=== PATIENT | female | born 1950 | race Caucasian/White ===

== ENCOUNTER 2018-09-06 07:38 | Inpatient (IN) | payer MEDICARE ==
[2018-09-03 09:00] VITALS: BMI 29.9
[2018-09-06 09:48] LABS: Anion Gap 15 mmol/L (10-20); BUN (Urea Nitrogen) 17 mg/dL (9.8-20.1); Calc. Creatinine Clearance 87 mL/min (70-130); Calcium 9.9 mg/dL (7.8-10.44); Carbon Dioxide 26 mmol/L (23-31); Chloride 102 mmol/L (98-107); Estimated GFR-MDRD 72; Glucose 129 mg/dL (80-115); Potassium 3.8 mmol/L (3.5-5.1); Sodium 139 mmol/L (136-145)
[2018-09-06] MEDS ORDERED: Fentanyl 100 MCG/2 ML VIAL ONE ×4 (09:54→12:43)
[2018-09-06] MEDS ORDERED: Sodium Chloride 0.9% 10 ML ONE (10:46)
[2018-09-06 10:55] LABS: Hemoglobin 11.4 g/dL (12.0-16.0); Mean Corpuscular Hemoglobin 22.3 pg (27.0-31.0); Platelet Count 247 thou/uL (130-400); RBC Distribution Width 16.5 % (11.5-14.5); White Blood Cell (WBC) Count 7.1 thou/uL (4.8-10.8)
[2018-09-06] MEDS ORDERED: HYDROmorphone 2 MG/ML VIAL ONE ×2 (12:23→13:02)
[2018-09-06] MEDS ORDERED: HYDROmorphone 2 MG/ML VIAL SLOW IVP PRN (12:29)
[2018-09-06] MEDS ORDERED: Ondansetron HCl/PF 4 MG/2 ML Vial IVP PRN (12:29)
[2018-09-06] MEDS ORDERED: Meperidine HCl/PF 25 MG/ML VIAL SLOW IVP PRN (12:29)
[2018-09-06] MEDS ORDERED: PACU-Morphine 4MG/ML VIAL SLOW IVP PRN (12:29)
[2018-09-06] MEDS ORDERED: Morphine Sulfate 2 MG/ML SYRINGE SLOW IVP PRN (12:29)
--- NOTE | 2018-09-06 13:23 | OP ---
DATE OF PROCEDURE: 09/06/2018 BRAKE REPAIRER: Enmanuel Shelton PA-C PROCEDURE PERFORMED: L4-L5 laminectomy; posterolateral arthrodesis; pedicle screw instrumentation, L4-L5; demineralized bone matrix; local morselized autograft. DESCRIPTION OF PROCEDURE: The patient was brought to the operating room and intubated. The patient was rolled in the prone position on gel-filled chest rolls. An incision was made exposing L4 and L5 and the level was confirmed by x-ray. We performed complete L5 with inferior L4 laminectomies completely decompressing the neural elements. There did appear to be scar tissue here consistent with prior surgery as well as significant synovial debris. After complete decompression was secured, pedicle screws were placed at right L4 and right L5 using lateral fluoroscopic guidance. These were connected by rods and secured by nuts, which were final tightened. The wound was then extensively irrigated and MAC hemostasis was secured. A combination of demineralized bone matrix and local morselized autograft was laid over the left lamina and posterolateral surfaces of posterolateral arthrodesis. Vancomycin powder was applied and the wound was then closed in anatomic layers over a drain. Job ID: [id number]
[2018-09-06] MEDS ORDERED: Milk Of Magnesia 30 ML UDCUP PO PRN (15:04)
[2018-09-06] MEDS ORDERED: Promethazine HCl 25 MG/ML VIAL IM PRN (15:04)
[2018-09-06] MEDS ORDERED: diphenhydrAMINE 50 MG/ML VIAL IVP PRN (15:04)
[2018-09-06] MEDS ORDERED: Mag-Al 1200 mg/1200 mg/30 ML UDCUP PO PRN (15:04)
[2018-09-06] MEDS ORDERED: traMADol HCl 50 MG TAB PO PRN ×2 (15:04)
[2018-09-06] MEDS ORDERED: diphenhydrAMINE 25 MG CAP PO PRN (15:04)
[2018-09-06] MEDS ORDERED: tiZANidine HCl 4 MG TAB PO PRN (15:04)
[2018-09-06] MEDS ORDERED: Promethazine 25 MG TAB PO PRN (15:04)
[2018-09-06] MEDS ORDERED: Promethazine HCl 12.5 MG SUPP PR PRN (15:04)
[2018-09-06] MEDS ORDERED: Ondansetron PF 4 MG/2 ML Vial IM PRN (15:04)
--- NOTE | 2018-09-06 15:04 | PDOC.PN ---
- Subjective Encounter Start Date: 09/06/18 Encounter Start Time: 15:25 -: old records requested/rev Patient seen and examined. No new complaints. - Objective MAR Reviewed: Yes Vital Signs & Weight: Weight Weight 180 lb Result Diagrams: 09/06/18 09:22 09/06/18 09:22 Additional Labs: OLD LABS AND MEDICAL RECORD REVIEWED Phys Exam - Physical Examination Constitutional: NAD HEENT: moist MMs, sclera anicteric Neck: no JVD, supple Respiratory: no wheezing, no rales, no rhonchi Cardiovascular: RRR, no significant murmur, no rub Gastrointestinal: soft, non-tender, no distention, positive bowel sounds Musculoskeletal: no edema, pulses present Neurological: non-focal, normal sensation Psychiatric: normal affect, A&O x 3 Skin: no rash, normal turgor Dx/Plan (1) S/P lumbar laminectomy Code(s): Z98.890 - OTHER SPECIFIED POSTPROCEDURAL STATES Status: Acute (2) Diabetes type 2, controlled Code(s): E11.9 - TYPE 2 DIABETES MELLITUS WITHOUT COMPLICATIONS Status: Chronic (3) Hypertension Code(s): I10 - ESSENTIAL (PRIMARY) HYPERTENSION Status: Chronic (4) Obesity (BMI 30.0-34.9) Code(s): E66.9 - OBESITY, UNSPECIFIED Status: Chronic (5) Dyslipidemia Code(s): E78.5 - HYPERLIPIDEMIA, UNSPECIFIED Status: Chronic (6) GERD (gastroesophageal reflux disease) Code(s): K21.9 - GASTRO-ESOPHAGEAL REFLUX DISEASE WITHOUT ESOPHAGITIS Status: Chronic - Plan cont current plan of care, PT/OT, DVT proph w/SCDs * Home medication reconciled * medication reviewed as below * symptomatic treatment * pain control * PT/OT * diabetes hyperglycemia protocol * code status-full code Review of Systems - Review of Systems ENT: negative: Ear Pain, Ear Discharge, Nose Pain, Nose Discharge, Nose Congestion, Mouth Pain, Mouth Swelling, Throat Pain, Throat Swelling, Other Respiratory: negative: Cough, Dry, Shortness of Breath, Hemoptysis, SOB with Excertion, Pleuritic Pain, Sputum, Wheezing Cardiovascular: negative: chest pain, palpitations, orthopnea, paroxysmal nocturnal dyspnea, edema, light headedness, other Gastrointestinal: negative: Nausea, Vomiting, Abdominal Pain, Diarrhea, Constipation, Melena, Hematochezia, Other Genitourinary: negative: Dysuria, Frequency, Incontinence, Hematuria, Retention , Other Musculoskeletal: negative: Neck Pain, Shoulder Pain, Arm Pain, Back Pain, Hand Pain, Leg Pain, Foot Pain, Other - Medications/Allergies Allergies/Adverse Reactions: Allergies Allergy/AdvReac Type Severity Reaction Status Date / Time levofloxacin [From Levaquin] Allergy Verified 09/03/18 08:59 prochlorperazine Allergy Verified 09/03/18 08:59 [From Compazine] Medications: Current Medications Acetaminophen (Tylenol) 650 mg PO Q6H PRN PRN Reason: Mild Pain (1-3) Hydrocodone Bitart/Acetaminophen ([place] 10/325) 1 tab PO Q4H PRN PRN Reason: PAIN (1-3) Hydrocodone Bitart/Acetaminophen ([place] 10/325) 2 tab PO Q4H PRN PRN Reason: PAIN (4-6) Al Hydroxide/Mg Hydroxide (Maalox) 30 ml PO Q4H PRN PRN Reason: Heartburn or Indigestion Amlodipine Besylate (Norvasc) 5 mg PO DAILY [facility] Artificial Tears (Tears Naturale) 2 drop EA EYE PRN PRN PRN Reason: Dry Eyes Bisacodyl (Dulcolax) 10 mg PO DAILYPRN PRN PRN Reason: Constipation Calcium Carbonate (Tums) 1,000 mg PO Q4H PRN PRN Reason: Heartburn or Indigestion Dextrose/Water (Dextrose 50%) 25 gm SLOW IVP PRN PRN PRN Reason: Hypoglycemia Diphenhydramine HCl (Benadryl) 25 mg PO Q6H PRN PRN Reason: Itching Diphenhydramine HCl (Benadryl) 25 mg IVP Q6H PRN PRN Reason: Itching Famotidine (Pepcid) 20 mg PO BID [facility] Fentanyl (Pacu-Sublimaze) 50 mcg SLOW IVP Q10MIN PRN PRN Reason: Moderate to Severe Pain (6-10) Stop: 09/06/18 15:29 Glucagon (Glucagon) 1 mg IM PRN PRN PRN Reason: Hypoglycemia Guaifenesin (Robitussin Sf) 200 mg PO Q4H PRN PRN Reason: Cough Hydralazine HCl (Apresoline) 10 mg SLOW IVP Q4H PRN PRN Reason: SBP > 180 and HR < 70 Hydrochlorothiazide (Hydrochlorothiazide) mg PO DAILY [facility] Hydromorphone HCl (Pacu-Dilaudid) 0.5 mg SLOW IVP Q10MIN PRN PRN Reason: Moderate to Severe Pain (6-10) Stop: 09/06/18 15:29 Cefazolin Sodium/Dextrose 2 gm (/ Device) 50 mls @ 100 mls/hr IVPB Q8HR [facility] Dextrose/Water (D5w) 1,000 mls @ 0 mls/hr IV .Q0M PRN PRN Reason: Hypoglycemia Insulin Human Lispro (Humalog) 0 units SC .MODERATE SLIDING SC PRN PRN Reason: Moderate Correctional Scale Insulin Human Lispro (Humalog) 0 units SC .BEDTIME SLIDING SC PRN PRN Reason: Bedtime Correctional Scale Loperamide HCl (Imodium) 2 mg PO PRN PRN PRN Reason: Diarrhea/Loose Stools Loratadine (Claritin) 10 mg PO DAILYPRN PRN PRN Reason: Sinus Symptoms Losartan Potassium (Cozaar) 25 mg PO DAILY [facility] Magnesium Hydroxide (Milk Of Magnesium) 30 ml PO Q12H PRN PRN Reason: Constipation Meperidine HCl (Pacu-Demerol) 12.5 mg SLOW IVP ONE PRN PRN Reason: Shivering Stop: 09/06/18 15:29 Metoprolol Succinate (Toprol Xl) mg PO DAILY [facility] Morphine Sulfate (Pacu-Morphine) 4 mg SLOW IVP ONE PRN PRN Reason: Moderate to Severe Pain (6-10) Stop: 09/06/18 15:29 Morphine Sulfate (Pacu-Morphine Sulfate) 2 mg SLOW IVP Q10MIN PRN PRN Reason: Moderate to Severe Pain (6-10) Stop: 09/06/18 15:29 Morphine Sulfate (Morphine) 2 mg SLOW IVP Q1H PRN PRN Reason: Moderate Breakthrough Pain Morphine Sulfate (Morphine) 4 mg SLOW IVP Q1H PRN PRN Reason: SEVERE BREAKTHROUGH PAIN Non-Formulary Medication (Insulin Glargine,Hum.Rec.Anlog [Lantus Solostar]) 32 units SC BID [facility] Non-Formulary Medication (Liraglutide [Victoza 3-Efren]) 1.2 ml SC DAILY [facility] Non-Formulary Medication (Metformin Hcl [Metformin Hcl]) 1 tab PO BID [facility] Non-Formulary Medication (Omeprazole [Omeprazole]) 4 tab PO DAILY [facility] Non-Formulary Medication (Oxycodone Hcl/Acetaminophen [Percocet]) 1 tablet PO Q12H PRN PRN Reason: Pain Ondansetron HCl (Pacu-Zofran) 4 mg IVP ONE PRN PRN Reason: Nausea/Vomiting Stop: 09/06/18 15:29 Ondansetron HCl (Zofran) 4 mg IM Q24H PRN PRN Reason: Nausea/Vomiting Ondansetron HCl (Zofran Odt) 4 mg PO Q6H PRN PRN Reason: Nausea/Vomiting Ondansetron HCl (Zofran) 4 mg IVP Q6H PRN PRN Reason: Nausea/Vomiting Pregabalin (Lyrica) mg PO TID [facility] Promethazine HCl (Phenergan) 12.5 mg IM Q4H PRN PRN Reason: Nausea/Vomiting Promethazine HCl (Phenergan) 12.5 mg PO Q4H PRN PRN Reason: Nausea/Vomiting Promethazine HCl (Phenergan Suppository) 12.5 mg [place] Q4H PRN PRN Reason: Nausea/Vomiting Senna/Docusate Sodium (Senokot S) 2 tab PO BID PRN PRN Reason: Constipation Sodium Chloride (Flush - Normal Saline) 10 ml IVF PRN PRN PRN Reason: Saline Flush Sodium Chloride ([place] Nasal [place] 0.65%) 0 ml EA NARE QIDPRN PRN PRN Reason: Nasal Congestion Temazepam (Restoril) 15 mg PO HSPRN PRN PRN Reason: Insomnia Throat Lozenges (Cepastat Lozenges) 1 colton PO Q2H PRN PRN Reason: Sore Throat Tizanidine HCl (Zanaflex) 4 mg PO Q6H PRN PRN Reason: MUSCLE SPASM Tramadol HCl (Ultram) 50 mg PO Q6H PRN PRN Reason: PAIN (1-3) Tramadol HCl (Ultram) 100 mg PO Q6H PRN PRN Reason: PAIN (4-6)
[2018-09-06] MEDS ORDERED: Dextrose 5% in Water 1,000 ML IV PRN (15:06)
[2018-09-06] MEDS ORDERED: Dextrose 50% Abboject 50 ML SYRINGE SLOW IVP PRN (15:06)
[2018-09-06] MEDS ORDERED: Cepastat Lozenges 1 LOZ PO PRN (15:07)
[2018-09-06] MEDS ORDERED: Senokot S 8.6-50 MG TAB PO PRN (15:07)
[2018-09-06] MEDS ORDERED: Ondansetron ODT 4 MG TAB PO PRN (15:07)
[2018-09-06] MEDS ORDERED: Calcium Carbonate 500 MG ChewTAB PO PRN (15:07)
[2018-09-06] MEDS ORDERED: Sodium Chloride 0.65% Nasal 44 ML BOT EA NARE PRN (15:07)
[2018-09-06] MEDS ORDERED: hydrALAZINE 20 MG/ML VIAL SLOW IVP PRN (15:07)
[2018-09-06] MEDS ORDERED: Diabetic Tussin 200 MG/10 ML UDCUP PO PRN (15:07)
[2018-09-06] MEDS ORDERED: Loratadine 10 MG TAB PO PRN (15:07)
[2018-09-06] MEDS ORDERED: Artificial Tears 18 DROP/0.9 ML EA EYE PRN (15:07)
[2018-09-06] MEDS ORDERED: Loperamide HCl 2 MG CAP PO PRN (15:07)
[2018-09-06] MEDS ORDERED: Temazepam 15 MG CAP PO PRN (15:07)
[2018-09-06] MEDS ORDERED: Bisacodyl 5 MG TAB PO PRN (15:07)
[2018-09-06] MEDS ORDERED: Ondansetron PF 4 MG/2 ML Vial IVP PRN (15:07)
[2018-09-06] MEDS ORDERED: Rocuronium Bromide 10 MG/ML (10ML VIAL) ONE (16:07)
[2018-09-06] MEDS ORDERED: Glycopyrrolate 0.2 MG/ML 5 ML SYRINGE ONE (16:07)
[2018-09-06] MEDS ORDERED: Ondansetron PF 4 MG/2 ML Vial ONE (16:07)
[2018-09-06] MEDS ORDERED: Lidocaine 1% PF 5 ML VIAL ONE (16:07)
[2018-09-06] MEDS ORDERED: Ketorolac Tromethamine 30 MG/ML VIAL ONE (16:07)
[2018-09-06] MEDS ORDERED: Dexamethasone 20 MG/5 ML VIAL ONE (16:07)
[2018-09-06] MEDS ORDERED: PHENYLEPHRINE-NS 100 MCG/ML 10 ML SYRINGE ONE (16:07)
[2018-09-06] MEDS ORDERED: PROPOFOL 200 MG/20 ML VIAL ONE (16:07)
[2018-09-06] MEDS: Morphine 4 MG/ML VIAL SLOW IVP PRN (16:28)
[2018-09-06] MEDS ORDERED: Acetaminophen 325 MG TAB PO PRN (16:31)
[2018-09-06] MEDS: HumaLOG 300 UNITS/3 ML VIAL SC PRN ×2 (18:08→21:00)
[2018-09-06] MEDS: Sodium Chloride 0.9% 1,000 ML IV SCH (19:26)
[2018-09-06] MEDS ORDERED: Sodium Chloride 0.9% 1,000 ML IV SCH (20:00)
[2018-09-06] MEDS ORDERED: Ketorolac Tromethamine 30 MG/ML VIAL IVP SCH (20:15)
[2018-09-06] MEDS: Famotidine 20 MG TAB PO SCH ×2 (20:49→21:25)
[2018-09-06] MEDS: Pregabalin 75 MG CAP PO SCH (20:49)
[2018-09-06] MEDS: Insulin Glargine 32 UNITS in Pre-Filled Syringe 1 EACH SC SCH (21:00)
[2018-09-06] MEDS: CEFAZOLIN 2 GM in Premix Bag 1 BAG IVPB SCH (21:03)
[2018-09-07] MEDS: CEFAZOLIN 2 GM in Premix Bag 1 BAG IVPB SCH ×3 (05:20→21:06)
[2018-09-07] MEDS: HumaLOG 300 UNITS/3 ML VIAL SC PRN ×3 (06:04→17:36)
[2018-09-07] MEDS: Amlodipine 5 MG TAB PO SCH (08:22)
[2018-09-07] MEDS: metFORMIN 500 MG TAB PO SCH ×2 (08:22→17:36)
[2018-09-07] MEDS: Famotidine 20 MG TAB PO SCH ×2 (08:22→21:00)
[2018-09-07] MEDS: Insulin Glargine 32 UNITS in Pre-Filled Syringe 1 EACH SC SCH ×2 (08:23→21:00)
[2018-09-07] MEDS: Pregabalin 75 MG CAP PO SCH ×3 (08:23→21:03)
[2018-09-07] MEDS: HYDROcodone/Acetaminophen 10/325 mg Tablet PO PRN ×2 (08:37→23:09)
[2018-09-07] MEDS ORDERED: LIRAGLUTIDE SC SCH (09:00)
--- NOTE | 2018-09-07 10:45 | PDOC.PN ---
- Subjective Encounter Start Date: 09/07/18 Encounter Start Time: 08:20 Patient seen and examined. No new complaints. No overnight events, drain removed today - Objective Resuscitation Status - Order Detail: 09/06/18 15:06 Resuscitation Status Routine Resuscitation Status: FULL: Full Resuscitation MAR Reviewed: Yes Vital Signs & Weight: Vital Signs (12 hours) Temp Pulse Resp BP Pulse Ox 09/07/18 08:00 98.3 F 77 16 140/58 L 94 L 09/07/18 04:21 98.2 F 81 16 109/58 L 94 L 09/06/18 23:45 98.2 F 85 16 109/58 L 94 L Weight Weight 180 lb I&O: 09/06/18 09/07/18 09/08/18 06:59 06:59 06:59 Intake Total 2150 Output Total 260 Balance 1890 Result Diagrams: 09/06/18 09:22 09/06/18 09:22 Additional Labs: Accuchecks 09/07/18 09/06/18 09/06/18 05:36 20:50 17:03 POC Glucose 245 H 365 H 215 H Phys Exam - Physical Examination Constitutional: NAD HEENT: PERRLA, moist MMs, sclera anicteric Neck: no JVD, supple Respiratory: no wheezing, no rales, no rhonchi Cardiovascular: RRR, no significant murmur, no rub Gastrointestinal: soft, non-tender, no distention, positive bowel sounds Musculoskeletal: no edema, pulses present Neurological: non-focal, normal sensation, moves all 4 limbs Lymphatic: no nodes Psychiatric: normal affect, A&O x 3 Skin: no rash, normal turgor Dx/Plan (1) S/P lumbar laminectomy Code(s): Z98.890 - OTHER SPECIFIED POSTPROCEDURAL STATES Status: Acute (2) Diabetes type 2, controlled Code(s): E11.9 - TYPE 2 DIABETES MELLITUS WITHOUT COMPLICATIONS Status: Chronic (3) Hypertension Code(s): I10 - ESSENTIAL (PRIMARY) HYPERTENSION Status: Chronic (4) Obesity (BMI 30.0-34.9) Code(s): E66.9 - OBESITY, UNSPECIFIED Status: Chronic (5) Dyslipidemia Code(s): E78.5 - HYPERLIPIDEMIA, UNSPECIFIED Status: Chronic (6) GERD (gastroesophageal reflux disease) Code(s): K21.9 - GASTRO-ESOPHAGEAL REFLUX DISEASE WITHOUT ESOPHAGITIS Status: Chronic - Plan cont current plan of care, PT/OT * pain controlled * medically stable * continue PT as per protocol * medication reviewed as below * symptomatic treatment. * discharge as per primary team * resume her home medication on discharge Review of Systems - Review of Systems Eyes: negative: Pain, Vision Change, Conjunctivae Inflammation, Eyelid Inflammation, Redness, Other ENT: negative: Ear Pain, Ear Discharge, Nose Pain, Nose Discharge, Nose Congestion, Mouth Pain, Mouth Swelling, Throat Pain, Throat Swelling, Other Respiratory: negative: Cough, Dry, Shortness of Breath, Hemoptysis, SOB with Excertion, Pleuritic Pain, Sputum, Wheezing Cardiovascular: negative: chest pain, palpitations, orthopnea, paroxysmal nocturnal dyspnea, edema, light headedness, other Gastrointestinal: negative: Nausea, Vomiting, Abdominal Pain, Diarrhea, Constipation, Melena, Hematochezia, Other Genitourinary: negative: Dysuria, Frequency, Incontinence, Hematuria, Retention , Other Musculoskeletal: Back Pain Skin: negative: Rash, Lesions, Presley, Bruising, Other - Medications/Allergies Allergies/Adverse Reactions: Allergies Allergy/AdvReac Type Severity Reaction Status Date / Time levofloxacin [From Levaquin] Allergy Verified 09/03/18 08:59 prochlorperazine Allergy Verified 09/03/18 08:59 [From Compazine] Medications: Current Medications Acetaminophen (Tylenol) 650 mg PO Q6H PRN PRN Reason: MILD PAIN (1-3) Hydrocodone Bitart/Acetaminophen ([place] 10/325) 1 tab PO Q4H PRN PRN Reason: PAIN (1-3) Hydrocodone Bitart/Acetaminophen ([place] 10/325) 2 tab PO Q4H PRN PRN Reason: PAIN (4-6) Last Admin: 09/07/18 08:37 Dose: 2 tab Al Hydroxide/Mg Hydroxide (Maalox) 30 ml PO Q4H PRN PRN Reason: Heartburn or Indigestion Amlodipine Besylate (Norvasc) 5 mg PO DAILY [facility] Last Admin: 09/07/18 08:22 Dose: 5 mg Artificial Tears (Tears Naturale) 2 drop EA EYE PRN PRN PRN Reason: Dry Eyes Bisacodyl (Dulcolax) 10 mg PO DAILYPRN PRN PRN Reason: Constipation Calcium Carbonate (Tums) 1,000 mg PO Q4H PRN PRN Reason: Heartburn or Indigestion Dextrose/Water (Dextrose 50%) 25 gm SLOW IVP PRN PRN PRN Reason: Hypoglycemia Diphenhydramine HCl (Benadryl) 25 mg PO Q6H PRN PRN Reason: Itching Diphenhydramine HCl (Benadryl) 25 mg IVP Q6H PRN PRN Reason: Itching Famotidine (Pepcid) 20 mg PO BID [facility] Last Admin: 09/07/18 08:22 Dose: 20 mg Glucagon (Glucagon) 1 mg IM PRN PRN PRN Reason: Hypoglycemia Guaifenesin (Robitussin Sf) 200 mg PO Q4H PRN PRN Reason: Cough Hydralazine HCl (Apresoline) 10 mg SLOW IVP Q4H PRN PRN Reason: SBP > 180 and HR < 70 Hydrochlorothiazide (Hydrochlorothiazide) 25 mg PO DAILY [facility] Cefazolin Sodium/Dextrose 2 gm (/ Device) 50 mls @ 100 mls/hr IVPB Q8HR [facility] Last Admin: 09/07/18 05:20 Dose: 50 mls Dextrose/Water (D5w) 1,000 mls @ 0 mls/hr IV .Q0M PRN PRN Reason: Hypoglycemia Insulin Glargine 32 units/ (Miscellaneous Medication) 0.32 mls @ 0 mls/hr SC BID [facility] Last Admin: 09/07/18 08:23 Dose: 0.32 mls Sodium Chloride (Normal Saline 0.9%) 1,000 mls @ 75 mls/hr IV .[id number] [facility] Last Admin: 09/06/18 19:26 Dose: Not Given Insulin Human Lispro (Humalog) 0 units SC .MODERATE SLIDING SC PRN PRN Reason: Moderate Correctional Scale Last Admin: 09/07/18 06:04 Dose: 4 units Insulin Human Lispro (Humalog) 0 units SC .BEDTIME SLIDING SC PRN PRN Reason: Bedtime Correctional Scale Last Admin: 09/06/18 21:00 Dose: 5 unit Loperamide HCl (Imodium) 2 mg PO PRN PRN PRN Reason: Diarrhea/Loose Stools Loratadine (Claritin) 10 mg PO DAILYPRN PRN PRN Reason: Sinus Symptoms Losartan Potassium (Cozaar) 25 mg PO DAILY [facility] Magnesium Hydroxide (Milk Of Magnesium) 30 ml PO Q12H PRN PRN Reason: Constipation Metformin HCl (Glucophage) 1,000 mg PO BID[facility] [place] Last Admin: 09/07/18 08:22 Dose: 1,000 mg Metoprolol Succinate (Toprol Xl) 100 mg PO DAILY [facility] Last Admin: 09/07/18 08:22 Dose: 100 mg Morphine Sulfate (Morphine) 2 mg SLOW IVP Q1H PRN PRN Reason: Moderate Breakthrough Pain Morphine Sulfate (Morphine) 4 mg SLOW IVP Q1H PRN PRN Reason: SEVERE BREAKTHROUGH PAIN Last Admin: 09/06/18 16:28 Dose: 4 mg Non-Formulary Medication (Liraglutide [Victoza 3-Efren]) 1.2 ml SC DAILY [facility] Ondansetron HCl (Zofran) 4 mg IM Q24H PRN PRN Reason: Nausea/Vomiting Ondansetron HCl (Zofran Odt) 4 mg PO Q6H PRN PRN Reason: Nausea/Vomiting Ondansetron HCl (Zofran) 4 mg IVP Q6H PRN PRN Reason: Nausea/Vomiting Oxycodone/Acetaminophen (Percocet 5/325) 1.5 tab PO Q12H PRN PRN Reason: Pain Pantoprazole Sodium (Protonix) 40 mg PO DAILY [facility] Last Admin: 09/07/18 08:22 Dose: 40 mg Pregabalin (Lyrica) 75 mg PO TID [facility] Last Admin: 09/07/18 08:23 Dose: 75 mg Promethazine HCl (Phenergan) 12.5 mg IM Q4H PRN PRN Reason: Nausea/Vomiting Promethazine HCl (Phenergan) 12.5 mg PO Q4H PRN PRN Reason: Nausea/Vomiting Promethazine HCl (Phenergan Suppository) 12.5 mg MD Q4H PRN PRN Reason: Nausea/Vomiting Senna/Docusate Sodium (Senokot S) 2 tab PO BID PRN PRN Reason: Constipation Sodium Chloride (Flush - Normal Saline) 10 ml IVF PRN PRN PRN Reason: Saline Flush Last Admin: 09/06/18 20:48 Dose: 10 ml Sodium Chloride ([place] Nasal [place] 0.65%) 0 ml EA NARE QIDPRN PRN PRN Reason: Nasal Congestion Temazepam (Restoril) 15 mg PO HSPRN PRN PRN Reason: Insomnia Throat Lozenges (Cepastat Lozenges) 1 colton PO Q2H PRN PRN Reason: Sore Throat Tizanidine HCl (Zanaflex) 4 mg PO Q6H PRN PRN Reason: MUSCLE SPASM Tramadol HCl (Ultram) 50 mg PO Q6H PRN PRN Reason: PAIN (1-3) Tramadol HCl (Ultram) 100 mg PO Q6H PRN PRN Reason: PAIN (4-6)
[2018-09-07] MEDS: Sodium Chloride 0.9% 1,000 ML IV SCH ×2 (12:36→19:36)
[2018-09-07] MEDS: Hydrochlorothiazide 25 MG TAB PO SCH (12:37)
[2018-09-07] MEDS: Losartan 25 MG TAB PO SCH (12:37)
[2018-09-07] MEDS: Morphine 4 MG/ML VIAL SLOW IVP PRN ×2 (12:48→20:40)
--- NOTE | 2018-09-07 12:48 | DIS ---
DATE OF ADMISSION: 09/06/2018 DATE OF DISCHARGE: 09/07/2018 PRIMARY CARE PHYSICIAN: Dr. Bucio. DISCHARGE DISPOSITION: Home. PRIMARY DISCHARGE DIAGNOSIS: Status post lumbar laminectomy. SECONDARY DISCHARGE DIAGNOSES: 1. Obesity. 2. Hypertension. 3. Gastroesophageal reflux disease. 4. Dyslipidemia. 5. Normocytic normochromic anemia. PRIMARY PROCEDURE/OPERATION: Lumbar laminectomy. RADIOLOGICAL INVESTIGATION: None. SIGNIFICANT LABORATORY DATA: Hemoglobin 11.4, creatinine 0.79. Electrolytes normal. DISCHARGE MEDICATIONS: 1. Amlodipine 5 mg p.o. daily. 2. Hydrochlorothiazide 25 mg p.o. daily. 3. Glargine 32 units subcu b.i.d. 4. Victoza 1.2 mL subcu daily. 5. Losartan 25 mg daily. 6. Metformin 1000 mg b.i.d. 7. Toprol-XL 100 mg daily. 8. Omeprazole 40 mg p.o. daily. 9. Oxycodone 7.5, one tablet twice daily. 10. Lyrica 75 mg t.i.d. CONTRAINDICATION: None. CODE STATUS: Full code. INPATIENT JOURNEYMAN PRESSMAN: Dr. Cisneros was primary. Sound Team was consulted for medical co-management. ALLERGIES: LEVAQUIN AND PROCHLORPERAZINE. DISCHARGE PLAN: Post-hospital, the patient will follow up with primary care physician in 1 week. HOSPITAL COURSE: A 67-year-old female who was electively admitted by Dr. Cisneros for lumbar laminectomy. After surgery, Sound Team was consulted for medical co-management. The patient's medical problems remained stable. We resumed the patient's selected home medication while in the hospital as well as on discharge. She did very well after surgery. Her drain was removed by Primary Team today. Primary Team will consider discharging her later on today depending upon her progress today. The patient is seen and examined at the bedside today, please see my progress note from today for further details. Job ID: [id number]
[2018-09-07] MEDS ORDERED: Iopamidol 370 76% 100 ML VIAL ONE (14:01)
[2018-09-07] MEDS: oxyCODONE/Acetaminophen 5 mg/325 mg Tablet PO PRN (14:58)
--- NOTE | 2018-09-07 21:49 | RAD ---
EXAM: XR Chest 1 View Portable PROVIDED CLINICAL HISTORY: Shortness of breath COMPARISON: None FINDINGS: Cardiac silhouette is within normal limits for portable technique. There is poor visualization of the left lung base and left hemidiaphragm. The right lung appears free of significant opacity. There is no evidence for pneumothorax. No evidence for right-sided effusion. IMPRESSION: Poor visualization of the left hemidiaphragm, which may reflect left basilar pleural and/or parenchym al opacity. Correlation with follow-up PA and lateral views recommended.
--- NOTE | 2018-09-07 23:13 | CT ---
EXAM: CT Chest W Con PROVIDED CLINICAL HISTORY: Shortness of breath COMPARISON: None FINDINGS: The heart, pericardium and great vessels demonstrate an unremarkable CT appearance with the exception of vascular calcification. Prominent by number but not pathologically enlarged mediastinal lymph nodes are demonstrated. The airway appears patent and of normal caliber. Small bilateral pleural effusions. Bibasilar patchy lung consolidation. Innumerable predominantly subpleural subcentimeter pulmonary nod ules. 2.4 cm groundglass nodule involving right middle lobe as well as additional areas of circumscribed groundglass opacity involving right upper lobe and more medial aspects of right middle lobe. Patchy groundglass opacity throughout the majority of the left lower lobe. The visualized portions of the upper abdomen demonstrate no acute abnormality. The osseous structures demonstrate no concerning lytic or blastic lesions. IMPRESSION: 1. Diffuse abnormality of the lung parenchyma consisting of bilateral subpleural subcentimeter nodule s, multifocal groundglass opacity including 2.4 cm groundglass nodule involving right middle lobe and bibasilar patchy lung consolidation. These findings are presumably infectious and/or inflammatory in nature. Other etiologies are not excluded and CT follow-up is recommended after treatment to evaluate for resolution. 2. Small bilateral pleural effusions.
[2018-09-08 00:27] LABS: Band 2 % (5-11); Hemoglobin 11.5 g/dL (12.0-16.0); Lymphocytes 19 % (21-51); MDiff Complete? YES; Mean Corpuscular HGB CONC 31.1 g/dL (32.0-36.0); Mean Corpuscular Hemoglobin 22.5 pg (27.0-31.0); Mean Corpuscular Volume 72.4 fL (78.0-98.0); Mean Platelet Volume 10.3 fL (7.4-10.4); Monocytes 3 % (0-10); Neutrophil 74 % (42-75); Platelet Count 286 thou/uL (130-400); Platelet Morphology Comment Appears Adequate; Red Blood Cell (RBC) Count 5.13 mill/uL (4.20-5.40); White Blood Cell (WBC) Count 15.3 thou/uL (4.8-10.8)
[2018-09-08] MEDS ORDERED: Furosemide 40 MG/4 ML VIAL SLOW IVP SCH (01:00)
--- NOTE | 2018-09-08 01:06 | PDOC.EVN ---
Event Note - Event Note Event Note: Patient SOB and hypoxic. CT scan showing bibasilar patchy lung consolidation, infectious vs inflammatory. CBC w/ white count 15,000. Patient afebrile, no cough. BNP >600. Symptoms improving with breathing treatments, will cover with Azithromycin since patient allergic to Levo. Will give one dose of IV Lasix now and get a BMP in the morning. I have personally evaluated patient and discussed case with Dr. Garcia.
[2018-09-08] MEDS: Azithromycin 500 MG in Sodium Chloride 0.9% 250 ML 250 ML IVPB SCH (01:33)
[2018-09-08] MEDS: HYDROcodone/Acetaminophen 10/325 mg Tablet PO PRN (04:21)
[2018-09-08] MEDS: CEFAZOLIN 2 GM in Premix Bag 1 BAG IVPB SCH (05:36)
--- NOTE | 2018-09-08 06:33 | PRG ---
DATE OF SERVICE: 09/08/2018 The patient is a 67-year-old female, status post L4-L5 decompression and fusion, postoperative day #2. The patient had been doing well with minimal pain, tolerating a regular diet, voiding appropriately, however, the patient had sudden onset of shortness of breath last night and was saturating in the 80s. She was placed on 5 L of nasal cannula and evaluated with a chest x-ray as well as a CT of the chest. CT of the chest is notable for diffuse bilateral ground-glass opacities in the right middle lobe, which may suggest infectious process would be inflammatory. The patient also has small bilateral pleural effusions, which may represent pulmonary vascular congestion. She was evaluated by the Medicine Service and they are assisting us with management of this event. She is much improved at this time. Otherwise, her ADRIEL is continued to trend downward and had only 40 mL of output overnight. She remains well, pain controlled and is mobilizing appropriately. On exam this morning, she is sitting up comfortably, in no acute distress. She does not appear significantly short of breath, but is currently saturating 94% on 5 L nasal cannula. She has free active range of motion of all extremities. No focal motor weakness or reflex asymmetry. Plan to continue to monitor her sudden shortness of breath. Does not appear to have acute PE. This may represent infectious versus pulmonary vascular congestion. Her BNP was slightly elevated. We are being assisted by the Medical Service. We will go ahead and remove her ADRIEL drain and discontinue her IV Ancef. We will continue to mobilize appropriately. Once she has improved from this event, I anticipate she will be able to discharge home at that time. Job ID: [id number]
[2018-09-08] MEDS: HumaLOG 300 UNITS/3 ML VIAL SC PRN (07:30)
[2018-09-08 08:01] LABS: Anion Gap 13 mmol/L (10-20); BUN (Urea Nitrogen) 16 mg/dL (9.8-20.1); Calc. Creatinine Clearance 83 mL/min (70-130); Calcium 8.3 mg/dL (7.8-10.44); Carbon Dioxide 25 mmol/L (23-31); Chloride 100 mmol/L (98-107); Estimated GFR-MDRD 69; Glucose 140 mg/dL (80-115); Potassium 3.7 mmol/L (3.5-5.1); Sodium 134 mmol/L (136-145)
[2018-09-08] MEDS: cefTRIAXone\\ROCEPHIN 1 GM in Sodium Chloride 0.9% 100 ML IVPB SCH (10:11)
[2018-09-08] MEDS: Losartan 25 MG TAB PO SCH (10:12)
[2018-09-08] MEDS: Amlodipine 5 MG TAB PO SCH (10:12)
[2018-09-08] MEDS: Insulin Glargine 32 UNITS in Pre-Filled Syringe 1 EACH SC SCH ×2 (10:13→21:48)
[2018-09-08] MEDS: metFORMIN 500 MG TAB PO SCH ×2 (10:14→18:20)
[2018-09-08] MEDS: Pregabalin 75 MG CAP PO SCH ×3 (10:14→21:48)
[2018-09-08] MEDS: Furosemide 40 MG/4 ML VIAL SLOW IVP SCH (10:16)
[2018-09-08] MEDS: Hydrochlorothiazide 25 MG TAB PO SCH (10:16)
[2018-09-08] MEDS: Famotidine 20 MG TAB PO SCH ×2 (10:18→21:47)
[2018-09-08] MEDS: oxyCODONE/Acetaminophen 5 mg/325 mg Tablet PO PRN ×2 (10:18→22:10)
--- NOTE | 2018-09-08 11:59 | PDOC.PN ---
- Subjective Encounter Start Date: 09/08/18 Encounter Start Time: 07:40 last night pt c/o dyspnea, found hypoxic, found with pneumonia and congestion, given duoneb and lasix, and started on antibiotic this morning feels better, has cough - Objective Resuscitation Status - Order Detail: 09/06/18 15:06 Resuscitation Status Routine Resuscitation Status: FULL: Full Resuscitation MAR Reviewed: Yes Vital Signs & Weight: Vital Signs (12 hours) Temp Pulse Resp BP BP Pulse Ox 09/08/18 11:27 97.8 F 72 16 120/68 95 09/08/18 10:12 70 112/68 09/08/18 07:49 98.5 F 70 16 112/68 97 09/08/18 04:02 100.1 F H 76 16 123/68 94 L 09/08/18 01:43 16 Weight Weight 180 lb I&O: 09/07/18 09/08/18 09/09/18 06:59 06:59 06:59 Intake Total 2150 Output Total 260 115 Balance 1890 -115 Result Diagrams: 09/07/18 23:54 09/08/18 07:03 Additional Labs: Accuchecks 09/08/18 09/08/18 09/07/18 11:05 06:18 21:00 POC Glucose 154 H 171 H 197 H 09/07/18 15:52 POC Glucose 203 H Radiology Reviewed by me: Yes (chest xray and CT chest reviewed) Phys Exam - Physical Examination Constitutional: NAD HEENT: PERRLA, moist MMs, sclera anicteric Neck: no JVD, supple Respiratory: wheezing present few scattered rales Cardiovascular: RRR, no significant murmur, no rub Gastrointestinal: soft, non-tender, no distention, positive bowel sounds Musculoskeletal: no edema, pulses present Neurological: non-focal, normal sensation, moves all 4 limbs Lymphatic: no nodes Psychiatric: normal affect, A&O x 3 Skin: no rash, normal turgor Dx/Plan (1) S/P lumbar laminectomy Code(s): Z98.890 - OTHER SPECIFIED POSTPROCEDURAL STATES Status: Acute (2) Diabetes type 2, controlled Code(s): E11.9 - TYPE 2 DIABETES MELLITUS WITHOUT COMPLICATIONS Status: Chronic (3) Hypertension Code(s): I10 - ESSENTIAL (PRIMARY) HYPERTENSION Status: Chronic (4) Obesity (BMI 30.0-34.9) Code(s): E66.9 - OBESITY, UNSPECIFIED Status: Chronic (5) Dyslipidemia Code(s): E78.5 - HYPERLIPIDEMIA, UNSPECIFIED Status: Chronic (6) GERD (gastroesophageal reflux disease) Code(s): K21.9 - GASTRO-ESOPHAGEAL REFLUX DISEASE WITHOUT ESOPHAGITIS Status: Chronic (7) Acute respiratory failure with hypoxia Code(s): J96.01 - ACUTE RESPIRATORY FAILURE WITH HYPOXIA Status: Acute (8) Pulmonary vascular congestion Code(s): R09.89 - OTH SYMPTOMS AND SIGNS INVOLVING THE CIRC AND RESP SYSTEMS Status: Acute (9) Anemia, normocytic normochromic Code(s): D64.9 - ANEMIA, UNSPECIFIED Status: Chronic - Plan cont current plan of care, PT/OT, respiratory therapy, incentive spirometry * continue iv lasix daily * dc ivf * continue duoneb * continue azithromycin and add rocephin * get echo today * wean off oxygen as tolerated * medication reviewed as below * symptomatic treatment * will keep in hospital * she will need repeat imaging after discharge to see resolution. Review of Systems - Review of Systems Constitutional: fever. negative: chills, sweats, weakness, malaise, other Eyes: negative: Pain, Vision Change, Conjunctivae Inflammation, Eyelid Inflammation, Redness, Other ENT: negative: Ear Pain, Ear Discharge, Nose Pain, Nose Discharge, Nose Congestion, Mouth Pain, Mouth Swelling, Throat Pain, Throat Swelling, Other Respiratory: Cough, Shortness of Breath, SOB with Excertion, Wheezing. negative : Dry, Hemoptysis, Pleuritic Pain, Sputum Cardiovascular: negative: chest pain, palpitations, orthopnea, paroxysmal nocturnal dyspnea, edema, light headedness, other Gastrointestinal: negative: Nausea, Vomiting, Abdominal Pain, Diarrhea, Constipation, Melena, Hematochezia, Other Genitourinary: negative: Dysuria, Frequency, Incontinence, Hematuria, Retention , Other Musculoskeletal: negative: Neck Pain, Shoulder Pain, Arm Pain, Back Pain, Hand Pain, Leg Pain, Foot Pain, Other Skin: negative: Rash, Lesions, Presley, Bruising, Other - Medications/Allergies Allergies/Adverse Reactions: Allergies Allergy/AdvReac Type Severity Reaction Status Date / Time levofloxacin [From Levaquin] Allergy Verified 09/03/18 08:59 prochlorperazine Allergy Verified 09/03/18 08:59 [From Compazine] Medications: Current Medications Acetaminophen (Tylenol) 650 mg PO Q6H PRN PRN Reason: MILD PAIN (1-3) Last Admin: 09/08/18 04:21 Dose: 325 mg Hydrocodone Bitart/Acetaminophen (Pearson 10/325) 1 tab PO Q4H PRN PRN Reason: PAIN (1-3) Hydrocodone Bitart/Acetaminophen (Pearson 10/325) 2 tab PO Q4H PRN PRN Reason: PAIN (4-6) Last Admin: 09/08/18 04:21 Dose: 2 tab Al Hydroxide/Mg Hydroxide (Maalox) 30 ml PO Q4H PRN PRN Reason: Heartburn or Indigestion Albuterol/Ipratropium (Duoneb) 3 ml NEB Q6H PRN PRN Reason: SOB &/or Wheezing Last Admin: 09/07/18 23:38 Dose: 3 ml Albuterol/Ipratropium (Duoneb) 3 ml NEB [id number] PRN PRN Reason: SOB &/or Wheezing Last Admin: 09/08/18 01:43 Dose: 3 ml Amlodipine Besylate (Norvasc) 5 mg PO DAILY [facility] Last Admin: 09/08/18 10:12 Dose: 5 mg Artificial Tears (Tears Naturale) 2 drop EA EYE PRN PRN PRN Reason: Dry Eyes Bisacodyl (Dulcolax) 10 mg PO DAILYPRN PRN PRN Reason: Constipation Calcium Carbonate (Tums) 1,000 mg PO Q4H PRN PRN Reason: Heartburn or Indigestion Dextrose/Water (Dextrose 50%) 25 gm SLOW IVP PRN PRN PRN Reason: Hypoglycemia Diphenhydramine HCl (Benadryl) 25 mg PO Q6H PRN PRN Reason: Itching Diphenhydramine HCl (Benadryl) 25 mg IVP Q6H PRN PRN Reason: Itching Famotidine (Pepcid) 20 mg PO BID [facility] Last Admin: 09/08/18 10:18 Dose: 20 mg Furosemide (Lasix) 40 mg SLOW IVP DAILY [facility] Last Admin: 09/08/18 10:16 Dose: 40 mg Glucagon (Glucagon) 1 mg IM PRN PRN PRN Reason: Hypoglycemia Guaifenesin (Robitussin Sf) 200 mg PO Q4H PRN PRN Reason: Cough Hydralazine HCl (Apresoline) 10 mg SLOW IVP Q4H PRN PRN Reason: SBP > 180 and HR < 70 Last Admin: 09/07/18 22:17 Dose: 10 mg Hydrochlorothiazide (Hydrochlorothiazide) 25 mg PO DAILY [facility] Last Admin: 09/08/18 10:16 Dose: 25 mg Dextrose/Water (D5w) 1,000 mls @ 0 mls/hr IV .Q0M PRN PRN Reason: Hypoglycemia Insulin Glargine 32 units/ (Miscellaneous Medication) 0.32 mls @ 0 mls/hr SC BID [facility] Last Admin: 09/08/18 10:13 Dose: 0.32 mls Azithromycin 500 mg/ Sodium (Chloride) 250 mls @ 250 mls/hr IVPB Q24HR [facility] Last Admin: 09/08/18 01:33 Dose: 250 mls Ceftriaxone Sodium 1 gm/ (Sodium Chloride) 100 mls @ 200 mls/hr IVPB Q24HR [facility] Last Admin: 09/08/18 10:11 Dose: 100 mls Insulin Human Lispro (Humalog) 0 units SC .MODERATE SLIDING SC PRN PRN Reason: Moderate Correctional Scale Last Admin: 09/08/18 07:30 Dose: 2 units Insulin Human Lispro (Humalog) 0 units SC .BEDTIME SLIDING SC PRN PRN Reason: Bedtime Correctional Scale Last Admin: 09/06/18 21:00 Dose: 5 unit Loperamide HCl (Imodium) 2 mg PO PRN PRN PRN Reason: Diarrhea/Loose Stools Loratadine (Claritin) 10 mg PO DAILYPRN PRN PRN Reason: Sinus Symptoms Losartan Potassium (Cozaar) 25 mg PO DAILY [facility] Last Admin: 09/08/18 10:12 Dose: 25 mg Magnesium Hydroxide (Milk Of Magnesium) 30 ml PO Q12H PRN PRN Reason: Constipation Metformin HCl (Glucophage) 1,000 mg PO BID-[facility] Last Admin: 09/08/18 10:14 Dose: 1,000 mg Metoprolol Succinate (Toprol Xl) 100 mg PO DAILY [facility] Last Admin: 09/08/18 10:13 Dose: 100 mg Morphine Sulfate (Morphine) 2 mg SLOW IVP Q1H PRN PRN Reason: Moderate Breakthrough Pain Morphine Sulfate (Morphine) 4 mg SLOW IVP Q1H PRN PRN Reason: SEVERE BREAKTHROUGH PAIN Last Admin: 09/07/18 20:40 Dose: 4 mg Non-Formulary Medication (Liraglutide [Victoza 3-Efren]) 1.2 ml SC DAILY [facility] Ondansetron HCl (Zofran) 4 mg IM Q24H PRN PRN Reason: Nausea/Vomiting Last Admin: 09/07/18 23:09 Dose: 4 mg Ondansetron HCl (Zofran Odt) 4 mg PO Q6H PRN PRN Reason: Nausea/Vomiting Ondansetron HCl (Zofran) 4 mg IVP Q6H PRN PRN Reason: Nausea/Vomiting Oxycodone/Acetaminophen (Percocet 5/325) 1.5 tab PO Q12H PRN PRN Reason: Pain Last Admin: 09/08/18 10:18 Dose: 1.5 tab Pantoprazole Sodium (Protonix) 40 mg PO DAILY [facility] Last Admin: 09/08/18 10:13 Dose: 40 mg Pregabalin (Lyrica) 75 mg PO TID [facility] Last Admin: 09/08/18 10:14 Dose: 75 mg Promethazine HCl (Phenergan) 12.5 mg IM Q4H PRN PRN Reason: Nausea/Vomiting Promethazine HCl (Phenergan) 12.5 mg PO Q4H PRN PRN Reason: Nausea/Vomiting Promethazine HCl (Phenergan Suppository) 12.5 mg [place] Q4H PRN PRN Reason: Nausea/Vomiting Senna/Docusate Sodium (Senokot S) 2 tab PO BID PRN PRN Reason: Constipation Sodium Chloride (Flush - Normal Saline) 10 ml IVF PRN PRN PRN Reason: Saline Flush Last Admin: 09/06/18 20:48 Dose: 10 ml Sodium Chloride (Cloud Nasal [place] 0.65%) 0 ml EA NARE QIDPRN PRN PRN Reason: Nasal Congestion Temazepam (Restoril) 15 mg PO HSPRN PRN PRN Reason: Insomnia Throat Lozenges (Cepastat Lozenges) 1 colton PO Q2H PRN PRN Reason: Sore Throat Tizanidine HCl (Zanaflex) 4 mg PO Q6H PRN PRN Reason: MUSCLE SPASM Tramadol HCl (Ultram) 50 mg PO Q6H PRN PRN Reason: PAIN (1-3) Tramadol HCl (Ultram) 100 mg PO Q6H PRN PRN Reason: PAIN (4-6)
--- NOTE | 2018-09-08 12:12 | PQF ---
MIAN MONROY, LISA JAFFE MD [id number] SURG A- [id number] CLINICAL DOCUMENTATION IMPROVEMENT CLARIFICATION FORM: ICD-10 Updated PLEASE DO AN ADDENDUM TO THE PROGRESS NOTE WITH ANY DOCUMENTATION UPDATES OR ADDITIONS AND CARRY THROUGH TO DC SUMMARY. THANK YOU. DATE: 09/08/18 ATTN:DR. Sarthak LATHAM Please exercise your independent, professional judgment in responding to the clarification form. Clinical indicators are provided on the bottom of this form for your review. Please check appropriate box(s): HEART FAILURE: A. TYPE: [ ] Systolic / HFrEF [ ] Diastolic / HFpEF [ ] Combined Systolic / Diastolic B. ACUITY [ ] Acute [ ] Acute on Chronic [ ] Chronic [ x ] Other diagnosis will document once we know more information,_ [ ] Unable to determine In addition, please specify: Present on Admission (POA): [ ] Yes [ ] No [ ] Unable to determine For continuity of documentation, please document condition throughout progress notes and discharge summary. Thank You. CLINICAL INDICATORS - SIGNS / SYMPTOMS / LABS 09/07 BNP 623.9 09/[address] IMPRESSION: SMALL BILATERAL PLEURAL EFFUSIONS, DIFFUSE ABNORMALITY OF THE LUNG PARENCHYMA CONSISTING OF BILATERAL SUBPLEURAL SUBCENTIMETER NODULES, MULTIFOCAL GROUND GLASS OPACITY INCLUDING 2.4 CM GROUND GLASS NODULE INVOLVING RIGHT MIDDLE LOBE AND BIBASILAR PATCHY LUNG CONSOLIDATION. 09/07 CHEST XRAY: IMPRESSION: POOR VISUALIZATION OF THE LEFT HEMIDIAPHRAGM, WHICH MAY REFLECT LEFT BASILAR PLEURAL AND OR PARENCHYMAL OPACITY. 09/08 EVENT NOTE (KARIS) PATIENT SOB AND HYPOXIC. CT SCAN SHOWING BIBASILAR PATCHY LUNG CONSOLIDATION, INFECTIOUS VS INFLAMMATORY. CBC W WHITE COUNT 15,000. PATIENT AFEBRILE, NO COUGH. BNP > 600. SYMPTOMS IMPROVING WITH BREATHING TREATMENTS, WILL COVER WITH AZITHROMYCIN SINCE PT IS ALLERGIC TO LEVO. WILL GIVE ONE DOSE OF LASIX NOW AND GET A BMP IN THE MORNING. RISK: ADVANCED AGE (67) RECENT SURGERY (09/06) HX OF HYPERTENSION ( YEISON) TREATMENTS: LASIX 40MG IV ( 09/08) SUPPLEMENTAL O2 ( 09/07-PRESENT) CHEST CT ORDERED (09/07) THANK YOU! VIRY (This form is maintained as a part of the permanent medical record) 2014 [employer]. All Rights Reserved [email or web address] [phone] NILSON
--- NOTE | 2018-09-08 12:17 | EKG ---
Test Reason : STAT Blood Pressure : / mmHG Vent. Rate : 081 BPM Atrial Rate : 081 BPM P-R Int : 168 ms QRS Dur : 082 ms QT Int : 372 ms P-R-T Axes : 033 -10 064 degrees QTc Int : 432 ms Normal sinus rhythm Low voltage QRS Borderline ECG When compared with ECG of 06-SEP-2018 09:17, Criteria for Inferior infarct are no longer Present Confirmed by DR. Iris RUSS (3) on 09/08/2018 12:17:18 PM Referred By: PAULINO Confirmed By:DR. Iris RUSS
[2018-09-08] MEDS ORDERED: ISOVUE-370 76%-LOCM 1 ML ONE (13:47)
--- NOTE | 2018-09-08 21:04 | CT ---
EXAM: CT pulmonary angiogram with IV contrast and 3-D MIP reconstructions PROVIDED CLINICAL HISTORY: Tachycardia COMPARISON: 09/07/2018 FINDINGS: There is no evidence for central or segmental pulmonary embolus. Interval resolution of majority of p reviously described lung parenchymal findings including resolution of nodules, large groundglass nodule and improvement in groundglass opacity. Interval increase in size of bilateral pleural effusio ns, now mild. Persistent patchy bibasilar parenchymal consolidation. Prominent subcarinal and right hilar lymph nodes are noted. The airway appears patent and of normal caliber. The visualized portions of the upper abdomen demonstrate no acute findings. The osseous structures demonstrate no concerning lytic or blastic lesions. IMPRESSION: 1. No evidence for central or segmental pulmonary embolus. 2. Interval improvement in lung parenchymal opacities as above. 3. Interval increase in bilateral pleural fluid.
--- NOTE | 2018-09-09 00:05 | PDOC.EVN ---
Event Note - Event Note Event Note: Code Green called for tachycardia into the 180s. Patient's other VS stable; asymptomatic. Patient had some very labile HR and seemed to be going in and out of narrow complex regular tachycardia c/w SVT vs aflutter, although also some brief runs of afib. Would jump back into sinus. CTA of chest ordered and was negative. Tele bed requested and will consult cardiology tomorrow morning. Patient has remained sinus since initial event on the tower at the time of this note..
[2018-09-09] MEDS: Azithromycin 500 MG in Sodium Chloride 0.9% 250 ML 250 ML IVPB SCH (01:00)
[2018-09-09] MEDS: Pregabalin 75 MG CAP PO SCH ×3 (08:21→21:25)
[2018-09-09] MEDS: metFORMIN 500 MG TAB PO SCH ×2 (08:23→17:59)
--- NOTE | 2018-09-09 09:34 | PRG ---
DATE OF SERVICE: 09/09/2018 SUBJECTIVE: The patient unfortunately had episode of elevated heart rate last night into the 180s. She was seen by the medical team and evaluated for what they believe appears to be atrial fibrillation versus SVT. This was short-lived and she remained sinus throughout the remainder of the night. Overall, she reports she is feeling better with regard to her shortness of breath. She is now saturating at 96% on 2 L nasal cannula. Her CTA of her chest yesterday was negative for PE. She denies significant back or leg pain, and is otherwise healing well from her L4-5 decompression and fusion. OBJECTIVE: On exam this morning, the patient is sitting up comfortably, awake, alert, in no acute distress. She has free active range of motion of all extremities. No focal motor weakness. No reflex asymmetry. Her dressing is dry and intact. She does not appear short of breath and is saturating at 96% on 2 L nasal cannula. Heart rate is regular rhythm. ASSESSMENT AND PLAN: Cardiology has been consulted for the patient's arrhythmia overnight. The patient will remain with us until she is medically stable. We appreciate the assistance of the medical team and Cardiology. Job ID: [id number]
[2018-09-09] MEDS: HYDROcodone/Acetaminophen 10/325 mg Tablet PO PRN ×3 (10:30→21:26)
[2018-09-09] MEDS: cefTRIAXone\\ROCEPHIN 1 GM in Sodium Chloride 0.9% 100 ML IVPB SCH (10:31)
[2018-09-09] MEDS: Hydrochlorothiazide 25 MG TAB PO SCH (10:32)
[2018-09-09] MEDS: Amlodipine 5 MG TAB PO SCH (10:32)
[2018-09-09] MEDS: Losartan 25 MG TAB PO SCH (10:32)
[2018-09-09] MEDS: Furosemide 40 MG/4 ML VIAL SLOW IVP SCH (10:32)
[2018-09-09] MEDS: Insulin Glargine 32 UNITS in Pre-Filled Syringe 1 EACH SC SCH ×2 (10:34→21:27)
[2018-09-09] MEDS: Famotidine 20 MG TAB PO SCH ×2 (10:35→21:24)
--- NOTE | 2018-09-09 13:49 | PDOC.PN ---
- Subjective Encounter Start Date: 09/09/18 Encounter Start Time: 13:47 Feels well. No complaints. Breathing comfortably. Reports a hx of palpitations. Was put on the Beta ruthann for that reason. Never dx'd with an arrhythmia. Back feels better. Increased mobility. - Objective Resuscitation Status - Order Detail: 09/06/18 15:06 Resuscitation Status Routine Resuscitation Status: FULL: Full Resuscitation Vital Signs & Weight: Vital Signs (12 hours) Temp Pulse Resp BP Pulse Ox 09/09/18 12:10 98.9 F 72 18 123/57 L 92 L 09/09/18 10:32 69 09/09/18 08:15 98.8 F 69 18 143/63 H 93 L 09/09/18 03:46 98.1 F 67 18 135/63 97 Weight Weight 180 lb I&O: 09/08/18 09/09/18 09/10/18 06:59 06:59 06:59 Intake Total 500 Output Total 115 40 Balance -115 460 Result Diagrams: 09/07/18 23:54 09/08/18 07:03 Additional Labs: Accuchecks 09/09/18 09/09/18 09/08/18 10:42 05:11 20:21 POC Glucose 76 102 136 H 09/08/18 16:03 POC Glucose 127 H Phys Exam - Physical Examination Constitutional: NAD Respiratory: no wheezing, no rales, no rhonchi Cardiovascular: RRR, no significant murmur, no rub Gastrointestinal: soft, non-tender, no distention, positive bowel sounds Musculoskeletal: no edema Dx/Plan (1) SVT (supraventricular tachycardia) Code(s): I47.1 - SUPRAVENTRICULAR TACHYCARDIA Status: Acute (2) Acute respiratory failure with hypoxia Code(s): J96.01 - ACUTE RESPIRATORY FAILURE WITH HYPOXIA Status: Acute (3) Pulmonary vascular congestion Code(s): R09.89 - OTH SYMPTOMS AND SIGNS INVOLVING THE CIRC AND RESP SYSTEMS Status: Acute (4) S/P lumbar laminectomy Code(s): Z98.890 - OTHER SPECIFIED POSTPROCEDURAL STATES Status: Acute (5) Diabetes type 2, controlled Code(s): E11.9 - TYPE 2 DIABETES MELLITUS WITHOUT COMPLICATIONS Status: Chronic (6) Dyslipidemia Code(s): E78.5 - HYPERLIPIDEMIA, UNSPECIFIED Status: Chronic (7) GERD (gastroesophageal reflux disease) Code(s): K21.9 - GASTRO-ESOPHAGEAL REFLUX DISEASE WITHOUT ESOPHAGITIS Status: Chronic (8) Hypertension Code(s): I10 - ESSENTIAL (PRIMARY) HYPERTENSION Status: Chronic (9) Obesity (BMI 30.0-34.9) Code(s): E66.9 - OBESITY, UNSPECIFIED Status: Chronic (10) Pneumonia Code(s): J18.9 - PNEUMONIA, UNSPECIFIED ORGANISM Status: Suspected - Plan * Doubt actual infectious pneumonia, but continuing abx. * Likely mild edema on CT. Improved with diuresis. * Echo looks normal. * Cards consult for SVT. * Pending Cards eval, she looks stable for DC.
--- NOTE | 2018-09-09 16:51 | EKG ---
Test Reason : STAT Blood Pressure : / mmHG Vent. Rate : 156 BPM Atrial Rate : 111 BPM P-R Int : 000 ms QRS Dur : 080 ms QT Int : 238 ms P-R-T Axes : 000 -32 179 degrees QTc Int : 383 ms Atrial fibrillation with rapid ventricular response first part of EKG shows NSR then onset of A Fib Left axis deviation Pulmonary disease pattern Inferior infarct , age undetermined Abnormal ECG When compared with ECG of 07-SEP-2018 21:44, Significant changes have occurred Confirmed by DR. Iris RUSS (3) on 09/09/2018 4:50:51 PM Referred By: KING Confirmed By:DR. Iris RUSS
--- NOTE | 2018-09-09 17:07 | CON ---
DATE OF CONSULTATION: 09/09/2018 REASON FOR CONSULTATION: Atrial fibrillation with a rapid ventricular response. HISTORY OF PRESENT ILLNESS: Ms. Ramirez is a very pleasant 67-year-old woman. The patient was admitted to the hospital with low back pain and had successful surgery on her low back. The patient, however, has had episodes of rapid heart rate and this morning had a very rapid heart rate associated with shortness of breath. EKG revealed atrial fibrillation with a rapid ventricular response. She was transferred to the telemetry floor. The patient states in retrospect, she has had palpitations, but never this level of shortness of breath. The patient does report that when she exercises and gets in a hurry, she feels pressure in her chest and discomfort in both arms. PAST HISTORY: She has a history of diabetes for about 14 years. MEDICATIONS: Prior to admission, 1. Hydrochlorothiazide. 2. Amlodipine. 3. Metoprolol 100 mg a day succinate. 4. Insulin. 5. Victoza. 6. Pregabalin. 7. Losartan. 8. Omeprazole. ALLERGIES: LEVOFLOXACIN AND PROCHLORPERAZINE. SOCIAL HISTORY: No alcohol or tobacco abuse. FAMILY HISTORY: Negative for heart disease at a young age. REVIEW OF SYSTEMS: CONSTITUTIONAL: No significant weight gain or loss. VISION: No changes. HEARING: No changes. PULMONARY: No cough or wheezing. GASTROINTESTINAL: No nausea, vomiting, or diarrhea. SKIN: No rashes. NEUROLOGIC: No unilateral weakness or numbness. PSYCHIATRIC: No unusual depression or anxiety. HEMATOLOGIC: No unusual bruising. GENITOURINARY: No burning urination. PHYSICAL EXAMINATION: GENERAL: This is a very pleasant 67-year-old woman, resting comfortably. VITAL SIGNS: Her blood pressure is 123/57 and pulse 90. HEENT: Eyes, sclerae nonicteric. Mouth, mucous membranes are moist. NECK: Supple. No lymphadenopathy. LUNGS: Clear. No wheezing, rales, or rhonchi. CARDIAC: Normal S1 and normal S2. There is no murmur, rub, or gallop. ABDOMEN: Soft and nontender. No hepatosplenomegaly. EXTREMITIES: Warm and dry. No clubbing or cyanosis. There is no edema. PERTINENT LABORATORY DATA: Hemoglobin is 11.5. Most recent blood sugar 76. Creatinine 0.8. BNP 623. EKG during the episode of palpitation showed atrial fibrillation, the rates was extremely rapid when she was in it. There was some variation with a rate up to 160 to 170 beats per minute. EKG otherwise was within normal limits. ASSESSMENT: 1. Postoperative status for surgery for low back pain, successful. 2. Postoperative atrial fibrillation with a rapid ventricular response. 3. Long-standing diabetes. 4. Exertional chest pressure, probably angina. 5. Echocardiogram showed normal left ventricular function. 6. Evidence of diastolic heart failure based on increased BNP with normal left ventricular function. PLAN: 1. I will add Multaq 400 mg twice a day. 2. Ultimately, we will need anticoagulation. Her CHADS-VASc is 4 with female gender, age, diabetes, and hypertension; would not start anticoagulation now. She just had some recent neurosurgery. 3. Stress testing to be done as an outpatient. She may have underlying coronary artery disease. 4. Check lipid profile tomorrow. She probably needs to be on statin. Job ID: [id number]
[2018-09-09] MEDS ORDERED: Dronedarone HCl 400 MG TAB PO SCH (20:45)
[2018-09-09] MEDS: HumaLOG 300 UNITS/3 ML VIAL SC PRN (21:28)
[2018-09-10] MEDS: Azithromycin 500 MG in Sodium Chloride 0.9% 250 ML 250 ML IVPB SCH (01:29)
[2018-09-10 05:49] LABS: ALT (SGPT) 7 U/L (8-55); AST (SGOT) 13 U/L (5-34); Albumin 3.5 g/dL (3.4-4.8); Alkaline Phosphatase 62 U/L (40-150); Anion Gap 12 mmol/L (10-20); BUN (Urea Nitrogen) 11 mg/dL (9.8-20.1); Bilirubin, Total 0.6 mg/dL (0.2-1.2); Calc. Creatinine Clearance 101 mL/min (70-130); Calcium 9.1 mg/dL (7.8-10.44); Carbon Dioxide 29 mmol/L (23-31); Cardiac Risk 4.2 (Less than 4.5); Chloride 99 mmol/L (98-107); Cholesterol 135 mg/dl (< 200 Desired); Estimated GFR-MDRD 86; Globulin 2.6 g/dL (2.4-3.5); Glucose 103 mg/dL (80-115); HDL Cholesterol 32 mg/dL (>60 Neg Risk); LDL Cholesterol, Calculated 78 mg/dL; Potassium 3.2 mmol/L (3.5-5.1); Protein, Total 6.1 g/dL (6.0-8.3); Sodium 137 mmol/L (136-145); Triglycerides 127 mg/dL (Less than 150)
[2018-09-10] MEDS: metFORMIN 500 MG TAB PO SCH (07:56)
[2018-09-10] MEDS: HYDROcodone/Acetaminophen 10/325 mg Tablet PO PRN (07:56)
[2018-09-10] MEDS ORDERED: Dronedarone HCl 400 MG TAB PO SCH (08:00)
[2018-09-10] MEDS ORDERED: Potassium Chloride 20 MEQ TAB PO SCH ×3 (08:00→12:00)
[2018-09-10 08:45] VITALS: BP 142/66; TEMP 98.8
[2018-09-10] MEDS: Furosemide 40 MG/4 ML VIAL SLOW IVP SCH (09:20)
[2018-09-10] MEDS: Amlodipine 5 MG TAB PO SCH (09:20)
[2018-09-10] MEDS: Hydrochlorothiazide 25 MG TAB PO SCH (09:21)
[2018-09-10] MEDS: Famotidine 20 MG TAB PO SCH (09:21)
[2018-09-10] MEDS: Pregabalin 75 MG CAP PO SCH (09:22)
[2018-09-10] MEDS: Losartan 25 MG TAB PO SCH (09:23)
[2018-09-10] MEDS: Insulin Glargine 32 UNITS in Pre-Filled Syringe 1 EACH SC SCH (09:40)
--- NOTE | 2018-09-10 09:43 | PRG ---
DATE OF SERVICE: 09/10/2018 SUBJECTIVE: Ms. Ramirez is doing well. She wants to go home. OBJECTIVE: VITAL SIGNS: Her blood pressure 142/66, pulse 70 and it is regular. LUNGS: Clear. CARDIAC: Normal S1, normal S2. ABDOMEN: Soft, nontender. EXTREMITIES: No edema. ASSESSMENT: 1. Status post surgery on 09/06/2018, L4-L5 laminectomy. 2. Atrial fibrillation in the postoperative period, very rapid ventricular response. 3. Diabetes. 4. Hypertension. PLAN: 1. She has been started on Multaq 400 mg twice a day. 2. She has some exertional anginal type symptoms. At some point, nuclear medicine stress testing to be done, probably PET scan. She will not be able to walk on a treadmill. 3. At some point, we will likely need statin therapy. LDL on this occasion is 78, but that is in the postoperative state and most likely would be higher. 4. Also at some point, recommend to consider anticoagulants. CHADS-VASc 4, possibly 5 if she ends up having coronary artery disease diagnosed. We will not start anticoagulants yet with recent neurosurgery. 5. Potassium is low this morning, asked her to take a dose of potassium prior to discharge. Job ID: [id number] MTDD
[2018-09-10] MEDS: cefTRIAXone\\ROCEPHIN 1 GM in Sodium Chloride 0.9% 100 ML IVPB SCH (09:47)
--- NOTE | 2018-09-10 11:38 | DIS ---
DATE OF ADMISSION: 09/06/2018 DATE OF DISCHARGE: 09/10/2018 HOSPITAL COURSE: The patient is a 67-year-old female, who underwent L4-L5 decompression and fusion on 09/06/2018. Following the surgery, she was transitioned to the Med/Surg floor. Her pain was well controlled with p.o. medications. She was tolerating a regular diet. She was voiding appropriately. Her ADRIEL drain trended down and was removed on postop day #3. The patient did have complications of increased shortness of breath and saturated down to the 80s on postop day #2, night #2. She had a CT of the chest that was negative for PE. There was concern for possible right-sided pneumonia and some pulmonary vascular congestion with elevated BNP. This was managed with diuresis and IV antibiotics by the Medical Service. On the night of postop day #3, the patient developed sudden episode of tachycardia. This was found to be atrial fibrillation with RVR. The patient was evaluated by Cardiology during her inpatient stay. They plan to start the patient on Multaq and followup outpatient to start anticoagulation in the next several weeks. I have discussed appropriate timing of anticoagulation considering her recent spinal surgery. She has been stable since these events and Cardiology as well as Medical Team feel that she can be discharged to home appropriately. She will be discharged to home with muscle relaxer, prescription for Multaq as well as azithromycin for 5 days. We will follow up with the patient in 2 weeks. I have discussed home care precautions and reasons for return. Job ID: [id number]
[2018-09-11] MEDS ORDERED: Losartan 25 MG TAB PO SCH (09:00)
== END 2018-09-10 13:20 | disposition home or self-care (01) | DRG 459 ==
LOC: SURG A 07:38 → 2NO 09-08 21:02
PROVIDERS: ADMIT Neurological Surgery; ATTEND Neurological Surgery
PROC: 0SG0071 Fusion of Lumbar Vertebral Joint with Autologous Tissue Substitute, Posterior Approach, Posterior Column, Open Approach (ICD-10-PCS; principal; 2018-09-06)
DX: M47.16 Other spondylosis with myelopathy, lumbar region (principal); J96.01 Acute respiratory failure with hypoxia; J18.9 Pneumonia, unspecified organism; I47.1 Supraventricular tachycardia; I50.30 Unspecified diastolic (congestive) heart failure; E11.9 Type 2 diabetes mellitus without complications; E66.9 Obesity, unspecified; E78.5 Hyperlipidemia, unspecified; K21.9 Gastro-esophageal reflux disease without esophagitis; D64.9 Anemia, unspecified; I11.0 Hypertensive heart disease with heart failure; I48.91 Unspecified atrial fibrillation; Z68.30 Body mass index [BMI] 30.0-30.9, adult; Z88.1 Allergy status to other antibiotic agents
CPT/HCPCS: 36415; 36416; 71045; 71260; 71275; 76000; 80048; 80053; 80061; 83880; 85025; 85027; 93005; 93010; 93306; 94640; C1713; C1768; J0360; J0456; J0690; J0696; J1100; J1170; J1815; J1885; J1940; J2001; J2270; J2405; J2704; J3010; J3370; J3490; J7050; J7620; Q9966; Q9967

== ENCOUNTER 2018-09-22 10:00 | Outpatient (CLI) | payer MEDICARE ==
--- NOTE | 2018-09-22 11:42 | RAD ---
LUMBAR SPINE SERIES 2 VIEWS: Date: 09/22/18 HISTORY: Follow-up surgery 2 weeks ago. FINDINGS: The vertebral bodies are normal in h eight. Right unilateral pedicle screw placement is noted at the L4-5 level. Minimal spondylolisthesis of L4 on L5 is seen. Marked degenerative disc narrowing at L5-S 1. Postop laminectomy change also is seen. IMPRESSION: Postoperative changes of the lower lumbar spine. POS: [facility]
== END 2018-09-22 10:01 | disposition home or self-care (01) ==
LOC: TBSIIMAG 10:00
PROVIDERS: ATTEND Neurological Surgery
DX: M47.16 Other spondylosis with myelopathy, lumbar region (principal); Z98.890 Other specified postprocedural states
CPT/HCPCS: 72100

== ENCOUNTER 2020-10-15 05:51 | Observation (INO) | payer MEDICARE ==
[2020-10-11 14:52] VITALS: BMI 31.6
[2020-10-15] MEDS ORDERED: Midazolam HCl 2 mg/2 ml Vial ONE (09:18)
[2020-10-15] MEDS ORDERED: Fentanyl 250 MCG/5 ML VIAL ONE (09:18)
[2020-10-15] MEDS ORDERED: Lidocaine 1% PF 5 ML VIAL ONE (09:33)
[2020-10-15] MEDS ORDERED: PHENYLEPHRINE-NS 100 MCG/ML 10 ML SYRINGE ONE (09:33)
[2020-10-15] MEDS ORDERED: Ondansetron PF 4 MG/2 ML Vial ONE (09:33)
[2020-10-15] MEDS ORDERED: PROPOFOL 200 MG/20 ML VIAL ONE (09:33)
[2020-10-15] MEDS ORDERED: ePHEDrine 50 MG/ML VIAL ONE (09:33)
[2020-10-15] MEDS ORDERED: Metoclopramide HCl 10 MG/2 ML VIAL ONE (09:33)
[2020-10-15] MEDS ORDERED: Glycopyrrolate 0.2 MG/ML 5 ML SYRINGE ONE (09:33)
[2020-10-15] MEDS ORDERED: Rocuronium Bromide 10 MG/ML (10ML VIAL) ONE (09:33)
[2020-10-15] MEDS ORDERED: Ondansetron HCl/PF 4 MG/2 ML Vial IVP PRN (10:31)
[2020-10-15] MEDS ORDERED: Ketorolac Tromethamine 30 MG/ML VIAL IVP PRN (10:31)
[2020-10-15] MEDS ORDERED: Promethazine HCl 25 MG/ML VIAL IM PRN ×2 (10:31→11:15)
[2020-10-15] MEDS ORDERED: Promethazine HCl 25 MG/ML VIAL IVPB PRN (10:31)
[2020-10-15] MEDS ORDERED: SUGAMMADEX SODIUM 200 MG/2 ML VIAL ONE (10:38)
[2020-10-15] MEDS ORDERED: Fentanyl 100 MCG/2 ML VIAL ONE ×2 (11:13→11:38)
[2020-10-15] MEDS ORDERED: Morphine 2 MG/ML VIAL SLOW IVP PRN (11:15)
[2020-10-15] MEDS ORDERED: Promethazine 25 MG TAB PO PRN (11:15)
[2020-10-15] MEDS ORDERED: diphenhydrAMINE 50 MG/ML VIAL IVP PRN (11:15)
[2020-10-15] MEDS ORDERED: Milk Of Magnesia 30 ML UDCUP PO PRN (11:15)
[2020-10-15] MEDS ORDERED: Ondansetron PF 4 MG/2 ML Vial IM PRN (11:15)
[2020-10-15] MEDS ORDERED: Promethazine HCl 12.5 MG SUPP PR PRN (11:15)
[2020-10-15] MEDS ORDERED: Cyclobenzaprine 10 MG TAB PO PRN (11:15)
[2020-10-15] MEDS ORDERED: Mag-Al 1200 mg/1200 mg/30 ML UDCUP PO PRN (11:15)
[2020-10-15] MEDS ORDERED: diphenhydrAMINE 25 MG CAP PO PRN (11:15)
[2020-10-15] MEDS ORDERED: traMADol HCl 50 MG TAB PO PRN ×2 (11:15)
[2020-10-15] MEDS ORDERED: oxyCODONE/Acetaminophen 5 mg/325 mg Tablet PO PRN (11:19)
[2020-10-15] MEDS ORDERED: Ketorolac Tromethamine 30 MG/ML VIAL ONE (11:21)
[2020-10-15] MEDS ORDERED: Dextrose 5% in Water 1,000 ML IV PRN (11:34)
[2020-10-15] MEDS ORDERED: Dextrose 50% Abboject 50 ML SYRINGE SLOW IVP PRN (11:34)
[2020-10-15] MEDS ORDERED: Insulin Regular 300 UNITS/3 ML VIAL SC PRN ×2 (11:34)
[2020-10-15] MEDS ORDERED: HYDROmorphone 0.5 MG/0.5 ML SYRINGE ONE ×3 (11:41→12:37)
[2020-10-15] MEDS ORDERED: OMEPRAZOLE 20 MG PO PRN (11:47)
[2020-10-15] MEDS ORDERED: Acetaminophen 325 MG TAB PO PRN (11:50)
[2020-10-15] MEDS: Pregabalin 75 MG CAP PO SCH ×2 (15:30→22:31)
[2020-10-15] MEDS: oxyCODONE/Acetaminophen 5 mg/325 mg Tablet PO SCH ×2 (15:30→22:30)
[2020-10-15] MEDS: CEFAZOLIN 2 GM in Premix Bag 1 BAG IVPB SCH (15:42)
[2020-10-15] MEDS ORDERED: metFORMIN 500 MG TAB PO SCH (17:00)
[2020-10-15] MEDS ORDERED: Morphine 4 MG/ML VIAL ONE ×3 (17:01→22:17)
[2020-10-15] MEDS: Morphine 4 MG/ML VIAL SLOW IVP PRN (17:01)
[2020-10-15] MEDS: Sodium Chloride 0.9% 1,000 ML IV SCH (17:30)
[2020-10-15] MEDS ORDERED: tiZANidine HCl 4 MG TAB ONE (20:52)
[2020-10-15] MEDS ORDERED: Losartan 25 MG TAB PO SCH (21:00)
[2020-10-15] MEDS ORDERED: Lantus 1000 UNITS/10 ML VIAL SC SCH (21:00)
[2020-10-15] MEDS ORDERED: Insulin Regular 300 UNITS/3 ML VIAL ONE (22:45)
[2020-10-16] MEDS: Sodium Chloride 0.9% 1,000 ML IV SCH (00:12)
[2020-10-16] MEDS ORDERED: Morphine 4 MG/ML VIAL ONE (00:14)
[2020-10-16] MEDS: Morphine 4 MG/ML VIAL SLOW IVP PRN (00:15)
[2020-10-16] MEDS: CEFAZOLIN 2 GM in Premix Bag 1 BAG IVPB SCH (00:25)
[2020-10-16 04:14] LABS: #Eosinphils 0.7 thou/uL (0.0-0.7); #Lymphocytes 1.3 thou/uL (1.20-3.40); #Monocytes 0.5 thou/uL (0.11-0.59); #Neutrophils 4.3 thou/uL (1.40-6.50); %Basophils 0.1 % (0.0-1.0); %Eosinophils 10.9 % (0.0-10.0); %Lymphocytes 18.9 % (21.0-51.0); %Monocytes 7.1 % (0.0-10.0); Hemoglobin 9.5 g/dL (12.0-16.0); Mean Corpuscular HGB CONC 32.2 g/dL (32.0-36.0); Mean Corpuscular Hemoglobin 23.2 pg (27.0-31.0); Mean Corpuscular Volume 72.2 fL (78.0-98.0); Mean Platelet Volume 11.9 fL (7.4-10.4); Platelet Count 207 thou/uL (130-400); RBC Distribution Width 17.7 % (11.5-14.5); Red Blood Cell (RBC) Count 4.11 mill/uL (4.20-5.40); White Blood Cell (WBC) Count 6.8 thou/uL (4.8-10.8)
[2020-10-16 04:29] LABS: Anion Gap 11 mmol/L (10-20); BUN (Urea Nitrogen) 18 mg/dL (9.8-20.1); Calc. Creatinine Clearance 68 mL/min (70-130); Calcium 8.3 mg/dL (7.8-10.44); Carbon Dioxide 25 mmol/L (23-31); Chloride 101 mmol/L (98-107); Glucose 173 mg/dL (83-110); Potassium 4.3 mmol/L (3.5-5.1); Sodium 133 mmol/L (136-145)
[2020-10-16] MEDS: oxyCODONE/Acetaminophen 5 mg/325 mg Tablet PO SCH (08:18)
[2020-10-16 08:26] VITALS: BP 144/43; TEMP 97.5
[2020-10-16] MEDS: Pregabalin 75 MG CAP PO SCH (08:38)
[2020-10-16] MEDS ORDERED: Amlodipine 5 MG TAB PO SCH (09:00)
[2020-10-16] MEDS ORDERED: Hydrochlorothiazide 25 MG TAB PO SCH (09:00)
== END 2020-10-16 08:35 | disposition home or self-care (01) ==
LOC: SDC 05:51 → PACU-TCU 11:03 → INTOOBSV 11:03
PROVIDERS: ADMIT Neurological Surgery; ATTEND Neurological Surgery
PROC: 0WJL0ZZ Inspection of Lower Back, Open Approach (ICD-10-PCS; principal; 2020-10-15)
PROC: 0SG1071 Fusion of 2 or more Lumbar Vertebral Joints with Autologous Tissue Substitute, Posterior Approach, Posterior Column, Open Approach (ICD-10-PCS; 2020-10-15)
PROC: 0SG10K1 Fusion of 2 or more Lumbar Vertebral Joints with Nonautologous Tissue Substitute, Posterior Approach, Posterior Column, Open Approach (ICD-10-PCS; 2020-10-15)
DX: M47.816 Spondylosis without myelopathy or radiculopathy, lumbar region (principal); M48.062 Spinal stenosis, lumbar region with neurogenic claudication; E11.42 Type 2 diabetes mellitus with diabetic polyneuropathy; I10 Essential (primary) hypertension; K21.9 Gastro-esophageal reflux disease without esophagitis; G89.29 Other chronic pain; M54.9 Dorsalgia, unspecified; D64.9 Anemia, unspecified; E78.5 Hyperlipidemia, unspecified; E66.9 Obesity, unspecified; Z68.31 Body mass index [BMI] 31.0-31.9, adult; Z79.4 Long term (current) use of insulin; Z79.899 Other long term (current) drug therapy; Z88.1 Allergy status to other antibiotic agents; Z88.8 Allergy status to other drugs, medicaments and biological substances; Z98.1 Arthrodesis status
CPT/HCPCS: 20930; 20936; 22612; 22614; 22830; 22842; 76000; 80048; 82962 ×2; 85025; 97139 ×2; C1713 ×2; C1768; 36415; 36416; J0690; J1170; J1815; J1885; J2250; J2270; J2405; J2704; J2765; J3010; J3370; J3490

== ENCOUNTER 2020-10-30 12:32 | Outpatient (CLI) | payer MEDICARE | END 2020-10-30 12:33 | disposition home or self-care (01) | LOC: TBSIIMAG 12:32 | PROVIDERS: ATTEND Physician Assistant | DX: M48.062 Spinal stenosis, lumbar region with neurogenic claudication (principal); M43.16 Spondylolisthesis, lumbar region; Z98.890 Other specified postprocedural states | CPT/HCPCS: 72100 ==